=== PATIENT | female | born 1965 ===

== ENCOUNTER 2018-06-11 19:46 | Emergency (ER) | payer OTHER ==
[2018-06-11 20:05] VITALS: BP 132/88; PULSE 63; RESP 18; TEMP 98.4; O2SAT 97
--- NOTE | 2018-06-11 20:21 | C.PDOC ---
History Of Present Illness 52 year old female with a history of HTN presents to the emergency department for evaluation of Right elbow pain developed 3 days ago after sustained blunt injury "bump over the wall by accident". Pt reports, pain is localized over Right elbow, worse with movement. Pt also request HTN medication refill Amlodipine 5 mg. Otherwise, pt denies fever, chills, headache, dizziness, visual changes, neck pain, CP, SOB, dyspnea, palpitation, denies deformity to RIght arm, denies weakness, sensory or vascular deficits to Right arm. Ambulate to Ed for vvealuation, not in any apparent distress. Time Seen by Provider: 06/11/18 20:06 Chief Complaint (Nursing): Medical Clearance History Per: Patient Past Medical History Reviewed: Historical Data, Nursing Documentation, Vital Signs Vital Signs: Last Vital Signs Temp 98.4 F 06/11/18 20:01 Pulse 63 06/11/18 20:01 Resp 18 06/11/18 20:01 BP 132/88 06/11/18 20:01 Pulse Ox 97 06/11/18 20:39 - Medical History PMH: Depression, HTN Denies: Chronic Kidney Disease Family History: States: No Known Family Hx - Social History Hx Tobacco Use: Yes Hx Alcohol Use: No Hx Substance Use: No - Immunization History Hx Tetanus Toxoid Vaccination: No Hx Influenza Vaccination: No Hx Pneumococcal Vaccination: No Review Of Systems Except As Marked, All Systems Reviewed And Found Negative. Constitutional: Negative for: Fever, Chills Eyes: Negative for: Vision Change ENT: Negative for: Ear Discharge, Nose Discharge, Throat Pain Cardiovascular: Negative for: Chest Pain, Palpitations, Orthopnea, Paroxysmal Noc. Dyspnea Respiratory: Negative for: Cough, Shortness of Breath Gastrointestinal: Negative for: Nausea, Vomiting, Abdominal Pain Musculoskeletal: Positive for: Other (Right elbow pain). Negative for: Neck Pain, Back Pain Skin: Negative for: Rash Neurological: Negative for: Weakness, Numbness, Altered Mental Status, Headache , Dizziness ED Course And Treatment O2 Sat by Pulse Oximetry: 97 - Other Rad Right elbow X-Ray: Interpreted by Me, Viewed By Me Interpretation: (-)acute fx or dislocation Progress Note: On re-evaluation, pt is afebrile, hemodynamicaly stable. NOn- toxic. Tolerate Po well in ED. ENT: no acute findings. RUE: mild tenderenss over olecranon. No edema, no erythema, no palpable deformity. FAROM, no neurovascular deficits. Neurologicaly intact. Xray review of Left elbow (-) acute fx or dislocation. Pt advised and ref. to f/u with PMD, Ortho in 2-3 days for re-eval. returbn to ED if any worsening or new changes. Disposition Counseled Patient/Family Regarding: Studies Performed, Diagnosis, Need For Followup, Rx Given - Disposition Referrals: [facility] [Outside] Disposition: HOME/ ROUTINE Disposition Time: 20:21 Condition: STABLE Additional Instructions: RICE-rest,ice, compression to Right elbow, light duty Take medication as prescribed Follow up with PMD in 2-3 days for re-evaluation. return to ED if any worsening or new changes. Prescriptions: amLODIPine [Norvasc] 5 mg PO DAILY #14 tab Ibuprofen [Motrin Tab] 400 mg PO BID #14 tab Instructions: High Blood Pressure in Adults, Elbow Sprain (DC) Forms: [employer] (Martiniquais) - Clinical Impression Clinical Impression: Elbow contusion, HTN (hypertension)
--- NOTE | 2018-06-12 08:29 | RAD ---
Date of service: 06/11/2018 PROCEDURE: Radiographs of the right elbow. HISTORY: injury COMPARISON: No prior. FINDINGS: BONES: No acute fracture or destructive bony lesion identified. JOINTS: Normal. No osteoarthritis. SOFT TISSUES: Normal. JOINT EFFUSION: None. OTHER FINDINGS: None. IMPRESSION: Unremarkable radiographs of the right elbow.
== END 2018-06-11 20:43 | disposition home or self-care (01) ==
LOC: C.ER 19:46
DX: S50.01XA Contusion of right elbow, initial encounter (principal); W22.8XXA Striking against or struck by other objects, initial encounter; I10 Essential (primary) hypertension